=== PATIENT | male | born 1960 | race African-American/Black ===

== ENCOUNTER 2018-09-27 13:07 | Inpatient (IN) | payer MEDICAID, OTHER ==
[~2018-09-27] VITALS: Ht 154.3 cm; Wt 110.7 kg
[2018-09-27] MEDS ORDERED: METF-815 PO (13:55)
[2018-09-27] MEDS ORDERED: INSU100V3 SUBCUT (13:56)
[2018-09-27] MEDS ORDERED: PIPERACILLIN/TAZ 3.375G PREMIX 50 ML IV ONE (15:00)
[2018-09-27] MEDS ORDERED: SODIUM CHLORIDE 0.9% 1000ML BAG (SEPSIS BOLUS) IV ONE (15:00)
[2018-09-27] MEDS ORDERED: VANCOMYCIN 1 G PREMIX 200 ML IV ONE (15:00)
[2018-09-27 15:22] LABS: BASOPHILS % 0.6 % (0.0-2.0); EOSINOPHILS % 1.8 % (0.0-5.0); HEMATOCRIT. 45.6 % (42.0-52.0); HEMOGLOBIN. 15.2 g/dL (14.0-18.0); LYMPHOCYTES % 27.5 % (20.0-50.0); MEAN CORPUSCULAR HEMOGLOBIN 29.6 pg (28.0-32.0); MEAN CORPUSCULAR VOLUME 88.8 fL (80.0-94.0); MEAN PLATELET VOLUME 9.5 fl (7.4-10.4); MONOCYTES % 11.2 % (2.0-8.0); NEUTROPHILS % 58.9 % (40.0-76.0); PLATELET 200 x1000/uL (130-400); RED BLOOD CELL COUNT 5.14 mill/uL (4.7-6.1); RED CELL DISTRIBUTION WIDTH 13.6 % (11.6-14.6)
[2018-09-27 15:30] LABS: CHLORIDE 103 mEq/L (98-107)
[2018-09-27 16:07] LABS: CLARITY URINE TURBID (CLEAR); COLOR URINE DARK YELLOW (YELLOW); KETONES URINE TRACE (NEGATIVE); LEUKOCYTE ESTERASE URINE NEGATIVE (NEGATIVE); NITRITE URINE NEGATIVE (NEGATIVE); OCCULT BLOOD URINE NEGATIVE (NEGATIVE); PROTEIN URINE TRACE (NEGATIVE); SPECIFIC GRAVITY URINE 1.037 (1.005-1.030)
[2018-09-27] MEDS ORDERED: NA PHOS,M-B/NA PHOS,DI-BA ENEMA 118ML PR PRN (17:30)
[2018-09-27] MEDS ORDERED: DOCUSATE SODIUM 100MG CAPSULE PO PRN (17:30)
[2018-09-27] MEDS ORDERED: DIPHENHYDRAMINE 50MG/ML VIAL IV PRN (17:30)
[2018-09-27] MEDS ORDERED: ONDANSETRON HCL 4MG/2ML INJ IV PRN (17:30)
[2018-09-27] MEDS ORDERED: CLONIDINE 0.1MG TABLET PO PRN (17:30)
[2018-09-27] MEDS ORDERED: IPRATROPIUM/ALBUTEROL 0.5-3(2.5)MG/3ML NEB INH PRN (17:30)
[2018-09-27] MEDS ORDERED: HYDROCODONE/ACETAMINOPHEN 10/325MG TABLET PO PRN (17:30)
[2018-09-27] MEDS ORDERED: ACETAMINOPHEN 325MG TABLET PO PRN (17:30)
[2018-09-27] MEDS ORDERED: MAGNESIUM/ALUMINUM HYDROXIDE/SIMETHICONE 30ML UDC PO PRN (17:30)
[2018-09-27] MEDS ORDERED: GUAIFENESIN 200MG/10ML SUGAR FREE UDC PO PRN (17:30)
[2018-09-27] MEDS: LORAZEPAM 2MG/ML CPJ IV PRN (20:07)
[2018-09-27 23:00] VITALS: BP 124/65
[2018-09-27] MEDS ORDERED: PIPERACILLIN/TAZ 3.375G PREMIX 50 ML IV SCH (23:00)
[2018-09-27 23:12] LABS: CHLORIDE 108 mEq/L (98-107)
[2018-09-28] VITALS: BP 124/65
[2018-09-28] MEDS ORDERED: DEXTROSE 50% WATER 50ML SYRINGE IV PRN (00:15)
[2018-09-28] MEDS: MORPHINE SULFATE 2 MG/ML CPJ (NOT FOR IM USE) IV PRN ×5 (00:55→20:56)
[2018-09-28] MEDS: PIPERACILLIN/TAZ 3.375G PREMIX 50 ML IV SCH ×2 (03:37→10:03)
[2018-09-28 04:00] VITALS: BP 139/76
[2018-09-28] MEDS: VANCOMYCIN 750 MG PREMIX 150 ML IV SCH ×2 (05:45→17:10)
[2018-09-28] MEDS: BLOOD SUGAR DIAGNOSTIC STRIP TEST SCH ×4 (06:50→20:47)
[2018-09-28 06:53] LABS: BASOPHILS % 0.4 % (0.0-2.0); EOSINOPHILS % 3.3 % (0.0-5.0); HEMOGLOBIN. 12.2 g/dL (14.0-18.0); LYMPHOCYTES % 32.6 % (20.0-50.0); MEAN CORPUSCULAR HEMOGLOBIN 30.2 pg (28.0-32.0); MEAN CORPUSCULAR VOLUME 89.1 fL (80.0-94.0); MEAN PLATELET VOLUME 9.9 fl (7.4-10.4); MONOCYTES % 14.4 % (2.0-8.0); NEUTROPHILS % 49.3 % (40.0-76.0); PLATELET 144 x1000/uL (130-400); RED BLOOD CELL COUNT 4.04 mill/uL (4.7-6.1); RED CELL DISTRIBUTION WIDTH 13.7 % (11.6-14.6)
[2018-09-28 07:35] LABS: CHLORIDE 107 mEq/L (98-107)
[2018-09-28 08:00] VITALS: BP 137/90
[2018-09-28 08:02] LABS: HDL CHOLESTEROL 26 mg/dL (40-59); LDL CHOLESTEROL 71 mg/dL (5-100)
[2018-09-28 08:03] LABS: T4 FREE 1.38 ng/dL (0.76-1.46)
[2018-09-28] MEDS: ENOXAPARIN 40MG/0.4ML SYR SUBCUT SCH (08:09)
[2018-09-28] MEDS: ASPIRIN 81MG EC TABLET PO SCH (08:10)
[2018-09-28] MEDS: INSULIN LISPRO 100 UNITS/ML SUBCUT SCH ×4 (08:18→20:50)
[2018-09-28 12:06] VITALS: BP 141/84
[2018-09-28] MEDS ORDERED: LIDOCAINE HCL/EPINEPHRINE 1%-EPI 1:100,000 20 ML VIAL INFIL NR (14:00)
[2018-09-28 16:00] VITALS: BP 137/75
[2018-09-28 20:00] VITALS: BP 149/71
[2018-09-28] MEDS: LORAZEPAM 2MG/ML CPJ IV PRN (23:16)
[2018-09-29] VITALS: BP 123/69
[2018-09-29] MEDS: PIPERACILLIN/TAZ 3.375G PREMIX 50 ML IV SCH ×2 (01:17→10:16)
[2018-09-29] MEDS: MORPHINE SULFATE 2 MG/ML CPJ (NOT FOR IM USE) IV PRN ×2 (03:51→09:40)
[2018-09-29 04:00] VITALS: BP 136/75
[2018-09-29] MEDS: VANCOMYCIN 750 MG PREMIX 150 ML IV SCH (05:45)
[2018-09-29 06:21] LABS: BASOPHILS % 0.6 % (0.0-2.0); EOSINOPHILS % 2.1 % (0.0-5.0); HEMATOCRIT. 39.8 % (42.0-52.0); HEMOGLOBIN. 13.4 g/dL (14.0-18.0); MEAN CORPUSCULAR HEMOGLOBIN 29.5 pg (28.0-32.0); MEAN CORPUSCULAR VOLUME 87.8 fL (80.0-94.0); MEAN PLATELET VOLUME 10.3 fl (7.4-10.4); MONOCYTES % 11.7 % (2.0-8.0); NEUTROPHILS % 52.6 % (40.0-76.0); PLATELET 157 x1000/uL (130-400); RED BLOOD CELL COUNT 4.53 mill/uL (4.7-6.1); RED CELL DISTRIBUTION WIDTH 13.4 % (11.6-14.6)
[2018-09-29 06:31] LABS: CHLORIDE 108 mEq/L (98-107)
[2018-09-29 06:40] LABS: VANCOMYCIN TROUGH 6.7 ug/mL (5.0-10.0)
[2018-09-29] MEDS: BLOOD SUGAR DIAGNOSTIC STRIP TEST SCH (06:45)
[2018-09-29] MEDS: ENOXAPARIN 40MG/0.4ML SYR SUBCUT SCH (08:11)
[2018-09-29] MEDS: ASPIRIN 81MG EC TABLET PO SCH (08:11)
[2018-09-29] MEDS: INSULIN LISPRO 100 UNITS/ML SUBCUT SCH (08:12)
[2018-09-29 10:54] VITALS: BP 114/60
[2018-09-29] MEDS ORDERED: VANCOMYCIN 750 MG PREMIX 150 ML IV SCH (12:00)
== END 2018-09-29 11:10 | disposition home or self-care (01) | DRG 364 ==
LOC: ER 13:07 → EDBEDREQ 16:37 → EDBEDREQTM 16:37 → ENRESERV 20:54 → 6EST 23:07
PROVIDERS: ADMIT Internal Medicine; ATTEND Internal Medicine
PROC: 0J9F0ZZ Drainage of Left Upper Arm Subcutaneous Tissue and Fascia, Open Approach (ICD-10-PCS; principal; 2018-09-28)
DX: L03.114 Cellulitis of left upper limb (principal); E11.65 Type 2 diabetes mellitus with hyperglycemia; R65.10 Systemic inflammatory response syndrome (SIRS) of non-infectious origin without acute organ dysfunction; L02.414 Cutaneous abscess of left upper limb; E86.0 Dehydration; T63.301A Toxic effect of unspecified spider venom, accidental (unintentional), initial encounter; I10 Essential (primary) hypertension; Z79.4 Long term (current) use of insulin; Z90.49 Acquired absence of other specified parts of digestive tract; Y92.89 Other specified places as the place of occurrence of the external cause
CPT/HCPCS: 36415; 71045; 80048; 80061; 80202; 82962; 84134; 84145; 84439; 84443; 84484; 87070; 87075; 93005; 96365; 96367; 96375; 99285; J1650; J1815; J2060; J2270; J2543; J3370; J3490; J7030; J7040

== ENCOUNTER 2019-11-01 14:35 | Inpatient (IN) | payer MEDICAID, OTHER ==
[~2019-11-01] VITALS: Ht 175.3 cm; Wt 88.5 kg
[~2019-11-01 14:35] MED LIST: INSU100V3 SUBCUT; METF-815 PO
[2019-11-01] MEDS ORDERED: KETOROLAC 30MG/ML VIAL IV STA (15:32)
[2019-11-01] MEDS ORDERED: PIPERACILLIN/TAZOBACTAM 3.375GM/50ML PREMIX IV ONE (15:45)
[2019-11-01] MEDS ORDERED: VANCOMYCIN 1 G PREMIX 200 ML IV SCH (15:45)
[2019-11-01] MEDS ORDERED: VANCOMYCIN 500 MG PREMIX 100 ML IV SCH (15:45)
[2019-11-01] MEDS ORDERED: PIPERACILLIN/TAZ 3.375G PREMIX 50 ML IV SCH (15:45)
[2019-11-01] MEDS ORDERED: SODIUM CHLORIDE 0.9% 1000ML BAG (SEPSIS BOLUS) IV ONE (15:45)
[2019-11-01 16:05] LABS: BASOPHILS % 0.4 % (0.0-2.0); EOSINOPHILS % 0.8 % (0.0-5.0); HEMATOCRIT. 39.8 % (42.0-52.0); HEMOGLOBIN. 13.6 g/dL (14.0-18.0); LYMPHOCYTES % 17.5 % (20.0-50.0); MEAN CORPUSCULAR HEMOGLOBIN 30.2 pg (28.0-32.0); MEAN CORPUSCULAR VOLUME 88.6 fL (80.0-94.0); MEAN PLATELET VOLUME 10.2 fl (7.4-10.4); NEUTROPHILS % 70.3 % (40.0-76.0); PLATELET 127 x1000/uL (130-400); RED BLOOD CELL COUNT 4.49 mill/uL (4.7-6.1); RED CELL DISTRIBUTION WIDTH 14.3 % (11.6-14.6)
[2019-11-01 16:09] LABS: CHLORIDE 91 mEq/L (98-107)
[2019-11-01 16:10] LABS: INR 1.1; PROTHROMBIN TIME 11.9 sec (9.6-11.0)
[2019-11-01] MEDS ORDERED: KCL 20MEQ/100ML PREMIX 100 ML IV ONE ×2 (16:45→19:45)
[2019-11-01 21:39] LABS: CLARITY URINE CLEAR (CLEAR); COLOR URINE YELLOW (YELLOW); KETONES URINE NEGATIVE (NEGATIVE); LEUKOCYTE ESTERASE URINE NEGATIVE (NEGATIVE); NITRITE URINE NEGATIVE (NEGATIVE); OCCULT BLOOD URINE NEGATIVE (NEGATIVE); PROTEIN URINE NEGATIVE (NEGATIVE)
[2019-11-01] MEDS ORDERED: ACETAMINOPHEN 325MG TABLET PO PRN (22:45)
[2019-11-01 23:08] LABS: *AMPHETAMINES SCREEN URINE NEGATIVE (NEGATIVE); *BARBITURATES SCREEN URINE NEGATIVE (NEGATIVE); *BENZODIAZEPINES SCREEN URINE NEGATIVE (NEGATIVE); *COCAINE SCREEN URINE NEGATIVE (NEGATIVE)
[2019-11-01 23:09] LABS: CANNABINOID URINE SCREEN PRESUMTIVE POSITIVE (NEGATIVE); METHADONE URINE SCREEN PRESUMTIVE POSITIVE (NEGATIVE); OPIATES URINE SCREEN PRESUMTIVE POSITIVE (NEGATIVE); PHENCYCLIDINE URINE SCREEN NEGATIVE (NEGATIVE)
[2019-11-01] MEDS: SODIUM CHLORIDE 0.9% 1,000 ML IV SCH (23:21)
[2019-11-02] MEDS ORDERED: VANCOMYCIN 1250MG in DEXTROSE 5% WATER 250ML IV SCH ×2
[2019-11-02] MEDS ORDERED: DEXTROSE 50% WATER 50ML SYRINGE IV PRN (01:15)
[2019-11-02] MEDS: MORPHINE SULFATE 2 MG/ML CPJ (NOT FOR IM USE) IV PRN ×3 (02:25→20:04)
[2019-11-02] MEDS: INSULIN LISPRO (MEDIUM DOSE) 100 UNITS/ML SUBCUT SCH ×4 (02:35→21:31)
[2019-11-02] MEDS: HYDROCODONE/ACETAMINOPHEN 5/325MG TABLET PO PRN ×3 (04:36→22:51)
[2019-11-02] MEDS: LORAZEPAM 2MG/ML CPJ IV PRN ×3 (04:36→21:32)
[2019-11-02 05:30] LABS: BASOPHILS % 0.9 % (0.0-2.0); EOSINOPHILS % 2.3 % (0.0-5.0); HEMOGLOBIN. 12.3 g/dL (14.0-18.0); LYMPHOCYTES % 29.2 % (20.0-50.0); MEAN CORPUSCULAR HEMOGLOBIN 30.2 pg (28.0-32.0); MEAN CORPUSCULAR VOLUME 88.7 fL (80.0-94.0); MEAN PLATELET VOLUME 10.2 fl (7.4-10.4); MONOCYTES % 11.4 % (2.0-8.0); NEUTROPHILS % 56.2 % (40.0-76.0); PLATELET 99 x1000/uL (130-400); RED BLOOD CELL COUNT 4.06 mill/uL (4.7-6.1); RED CELL DISTRIBUTION WIDTH 13.9 % (11.6-14.6)
[2019-11-02 05:37] LABS: CHLORIDE 102 mEq/L (98-107)
[2019-11-02 05:42] LABS: PHOSPHORUS 1.6 mg/dL (2.5-4.9)
[2019-11-02] MEDS: BLOOD SUGAR DIAGNOSTIC STRIP TEST SCH ×4 (06:30→21:08)
[2019-11-02 09:00] VITALS: BP 115/80
[2019-11-02] MEDS: ENOXAPARIN 40MG/0.4ML SYR SUBCUT SCH (09:00)
[2019-11-02] MEDS ORDERED: POTASSIUM CHLORIDE 20MEQ TABLET SR PO NR (09:30)
[2019-11-02] MEDS: FOLIC ACID 1MG TABLET PO SCH (10:23)
[2019-11-02] MEDS: VANCOMYCIN 1 G PREMIX 200 ML IV SCH ×3 (10:47→23:49)
[2019-11-02] MEDS: INSULIN GLARGINE UD 100 UNITS/ML SYR SUBCUT SCH ×2 (10:59→21:45)
[2019-11-02] MEDS ORDERED: MAGNESIUM 2 G PREMIX 50 ML IV NR (11:00)
[2019-11-02] MEDS ORDERED: POTASSIUM PHOS,M-BASIC-D-BASIC 20 MMOL in DEXT 5% WATER 243.3333 ML IV NR (11:00)
[2019-11-02 12:00] VITALS: BP 107/56
[2019-11-02] MEDS ORDERED: METH10OR11 PO (12:24)
[2019-11-02] MEDS: METHADONE HCL 10MG TABLET PO SCH (13:38)
[2019-11-02 16:00] VITALS: BP 104/67
[2019-11-02] MEDS: SODIUM CHLORIDE 0.9% 1,000 ML IV SCH (19:06)
[2019-11-02] MEDS: ONDANSETRON HCL 4MG/2ML INJ IV PRN (19:57)
[2019-11-02 20:00] VITALS: BP 112/69
[2019-11-02] MEDS ORDERED: INSULIN LISPRO 100 UNITS/ML SUBCUT NR (22:20)
[2019-11-03] VITALS: BP 100/66
[2019-11-03] MEDS: LORAZEPAM 2MG/ML CPJ IV PRN ×2 (01:11→09:46)
[2019-11-03 04:00] VITALS: BP 98/60
[2019-11-03] MEDS: ONDANSETRON HCL 4MG/2ML INJ IV PRN (04:03)
[2019-11-03] MEDS: MORPHINE SULFATE 2 MG/ML CPJ (NOT FOR IM USE) IV PRN (04:11)
[2019-11-03] MEDS: INSULIN LISPRO (MEDIUM DOSE) 100 UNITS/ML SUBCUT SCH (06:29)
[2019-11-03] MEDS: HYDROCODONE/ACETAMINOPHEN 5/325MG TABLET PO PRN (06:30)
[2019-11-03] MEDS: BLOOD SUGAR DIAGNOSTIC STRIP TEST SCH (06:49)
[2019-11-03 07:58] LABS: BASOPHILS % 0.6 % (0.0-2.0); EOSINOPHILS % 2.4 % (0.0-5.0); HEMATOCRIT. 37.2 % (42.0-52.0); HEMOGLOBIN. 12.5 g/dL (14.0-18.0); LYMPHOCYTES % 32.6 % (20.0-50.0); MEAN CORPUSCULAR VOLUME 88.9 fL (80.0-94.0); MEAN PLATELET VOLUME 11.1 fl (7.4-10.4); MONOCYTES % 9.9 % (2.0-8.0); NEUTROPHILS % 54.5 % (40.0-76.0); PLATELET 97 x1000/uL (130-400); RED BLOOD CELL COUNT 4.18 mill/uL (4.7-6.1); RED CELL DISTRIBUTION WIDTH 14.2 % (11.6-14.6)
[2019-11-03 08:00] VITALS: BP 99/55
[2019-11-03 08:00] LABS: CHLORIDE 103 mEq/L (98-107)
[2019-11-03 08:15] LABS: PHOSPHORUS 2.7 mg/dL (2.5-4.9)
[2019-11-03] MEDS ORDERED: INSHUMSS SUBCUT (08:42)
[2019-11-03] MEDS ORDERED: AMOX-424 MT (08:42)
[2019-11-03] MEDS ORDERED: INSU100I28 SQ (08:42)
[2019-11-03] MEDS ORDERED: SULF1TAB48 MT (08:42)
[2019-11-03] MEDS ORDERED: POTASSIUM CHLORIDE 20MEQ TABLET SR PO SCH (08:45)
[2019-11-03 09:35] VITALS: BP 99/55
[2019-11-03] MEDS: METHADONE HCL 10MG TABLET PO SCH (09:35)
[2019-11-03] MEDS: VANCOMYCIN 1 G PREMIX 200 ML IV SCH (09:35)
[2019-11-03] MEDS: FOLIC ACID 1MG TABLET PO SCH (09:35)
[2019-11-03] MEDS: ENOXAPARIN 40MG/0.4ML SYR SUBCUT SCH (09:36)
[2019-11-03] MEDS ORDERED: INSULIN GLARGINE UD 100 UNITS/ML SYR SUBCUT SCH (10:00)
== END 2019-11-03 11:05 | disposition left against medical advice (07) | DRG 383 ==
LOC: ER 14:35 → EDBEDREQ 16:37 → EDBEDREQSVC 16:37 → MICUSO 17:24 → EDBEDREQ 17:25 → 5WST 11-02 07:15
PROVIDERS: ADMIT Internal Medicine Nephrology; ATTEND Internal Medicine Nephrology
DX: L03.114 Cellulitis of left upper limb (principal); E11.65 Type 2 diabetes mellitus with hyperglycemia; E44.1 Mild protein-calorie malnutrition; E87.1 Hypo-osmolality and hyponatremia; D64.9 Anemia, unspecified; E87.8 Other disorders of electrolyte and fluid balance, not elsewhere classified; F11.20 Opioid dependence, uncomplicated; F12.90 Cannabis use, unspecified, uncomplicated; F17.210 Nicotine dependence, cigarettes, uncomplicated; L02.414 Cutaneous abscess of left upper limb; Z90.49 Acquired absence of other specified parts of digestive tract; F19.10 Other psychoactive substance abuse, uncomplicated; R74.0 Nonspecific elevation of levels of transaminase and lactic acid dehydrogenase [LDH]; Z71.51 Drug abuse counseling and surveillance of drug abuser; Z68.28 Body mass index [BMI] 28.0-28.9, adult
CPT/HCPCS: 36415; 71045; 80048; 80053; 80202; 80305; 81003; 82962; 83036; 83605; 83735; 84100; 84145; 84484; 85025; 93005; 99285; J1650; J1815; J1885; J2060; J2270; J2405; J2543; J3370; J3475; J3480; J3490; J7030; J7060

== ENCOUNTER 2022-06-16 15:00 | Emergency (ER) | payer MEDICAID, OTHER ==
[~2022-06-16] VITALS: Ht 177.8 cm; Wt 80.0 kg
[~2022-06-16 15:00] MED LIST changes: +AMOX-424 MT; +INSHUMSS SUBCUT; +INSU100I28 SQ; -METF-815 PO; +METF-873 PO; +METH10OR11 PO; +SULF1TAB48 MT
[2022-06-16 15:07] VITALS: BP 138/76
[2022-06-16] MEDS ORDERED: VANCOMYCIN 1G PREMIX 200 ML IV SCH (16:00)
[2022-06-16] MEDS ORDERED: CEFTRIAXONE 2GM/50ML (ADDEASE) 50 ML IV ONE (16:00)
[2022-06-16 16:53] LABS: BASOPHILS % 0.6 % (0.0-2.0); CHLORIDE 103 mEq/L (98-107); EOSINOPHILS % 2.1 % (0.0-5.0); HEMATOCRIT. 38.9 % (42.0-52.0); HEMOGLOBIN. 13.1 g/dL (14.0-18.0); LYMPHOCYTES % 29.6 % (20.0-50.0); MEAN CORPUSCULAR HEMOGLOBIN 28.1 pg (28.0-32.0); MEAN CORPUSCULAR VOLUME 83.1 fL (80.0-94.0); MEAN PLATELET VOLUME 9.4 fl (7.4-10.4); MONOCYTES % 10.9 % (2.0-8.0); NEUTROPHILS % 56.8 % (40.0-76.0); PLATELET 177 x1000/uL (130-400); RED BLOOD CELL COUNT 4.67 mill/uL (4.7-6.1); RED CELL DISTRIBUTION WIDTH 14.1 % (11.6-14.6)
[2022-06-16 16:55] LABS: INR 1.1; PROTHROMBIN TIME 12.1 sec (9.6-11.0)
[2022-06-16] MEDS ORDERED: CEFTRIAXONE 2GM DUPLEX 50 ML IV NR (17:00)
[2022-06-16] MEDS ORDERED: CEFTRIAXONE 2 G in DEXTROSE 5% WATER 50 ML IV NR (17:00)
[2022-06-16] MEDS ORDERED: IBUP-2029 MT (18:51)
[2022-06-17] MEDS ORDERED: IBUP-2029 MT (09:02)
== END 2022-06-17 04:27 | disposition home or self-care (01) ==
LOC: ER 15:00
DX: M25.551 Pain in right hip (principal); E11.9 Type 2 diabetes mellitus without complications; Z90.49 Acquired absence of other specified parts of digestive tract; Z79.899 Other long term (current) drug therapy
CPT/HCPCS: 36415; 73502; 80053; 85025; 85610; 85651; 96365; 96367; 99285; J0696; J3370; Z7610; J7060

== ENCOUNTER 2022-06-17 04:45 | Emergency (ER) | payer MEDICAID, OTHER ==
[~2022-06-17] VITALS: Ht 175.3 cm; Wt 73.5 kg
[~2022-06-17 04:45] MED LIST changes: +IBUP-2029 MT
[2022-06-17 05:05] VITALS: BP 140/70
[2022-06-17] MEDS ORDERED: ACETAMINOPHEN 325MG TABLET PO ONE (09:00)
[2022-06-17] MEDS ORDERED: IBUP-2029 MT (09:02)
== END 2022-06-17 09:51 | disposition home or self-care (01) ==
LOC: ER 04:45
DX: M25.551 Pain in right hip (principal); E11.9 Type 2 diabetes mellitus without complications; Z98.890 Other specified postprocedural states; Z90.49 Acquired absence of other specified parts of digestive tract; Z79.899 Other long term (current) drug therapy
CPT/HCPCS: 99282